=== PATIENT | female | born 1945 | race Caucasian/White ===

== ENCOUNTER 2018-09-03 17:38 | Emergency (ER) | payer OTHER ==
[~2018-09-03] VITALS: Ht 162.6 cm; Wt 69.9 kg
[~2018-09-03 17:38] MED LIST: ATEN-60; DIPH-120; LORA1TAB12; NAPR-223; NOR10T; OMEP20TA44; SIMV20TA90
[2018-09-03 20:31] VITALS: BP 115/34
[2018-09-03] MEDS ORDERED: methylPREDNISolone SOD SUCC 125 MG/2 ML VL IM ONE (21:15)
[2018-09-03] MEDS ORDERED: HYDROcodone-ACET 10/325MG TAB PO ONE (21:15)
== END 2018-09-03 22:00 | disposition home or self-care (01) ==
LOC: ER 17:38
DX: M06.872 Other specified rheumatoid arthritis, left ankle and foot (principal); K21.9 Gastro-esophageal reflux disease without esophagitis; E78.5 Hyperlipidemia, unspecified; I10 Essential (primary) hypertension; F41.9 Anxiety disorder, unspecified; M10.9 Gout, unspecified; Z90.49 Acquired absence of other specified parts of digestive tract
CPT/HCPCS: 73590; 73610; 73630; 96372; 99283; J2930

== ENCOUNTER 2021-02-06 20:42 | Inpatient (IN) | payer OTHER ==
[~2021-02-06] VITALS: Ht 157.5 cm; Wt 75.0 kg
[~2021-02-06 20:42] MED LIST changes: +ALLO100T PO; +ASCO500C49 PO; +ASPI81CH43 PO; +DOCU-94 PO; +FER325T PO; +LEVO250T19 PO; -LORA1TAB12; +LORA1TAB23; +SIMV20TA2; -SIMV20TA90; +TRIATAB3 PO
[2021-02-06] MEDS ORDERED: fentaNYL CITRATE 100 MCG/2 ML VL IV ONE (22:15)
[2021-02-06] MEDS ORDERED: ONDANSETRON HCL 4 MG/2 ML VIAL IV ONE (22:15)
[2021-02-06] MEDS ORDERED: HYDROmorphone HCL 2 MG/ML VL IV ONE (23:45)
[2021-02-07 00:02] LABS: Basophils # (auto) 0.1 10 ^3/uL (0-0.2); Basophils % (auto) 0.7 % (0.0-2.0); Eosinophils # (auto) 0.1 10 ^3/uL (0-0.8); Eosinophils % (auto) 1.1 % (0.0-7.0); Hematocrit 35.4 % (36.0-46.0); Hemoglobin 11.4 g/dL (12.2-16.2); Lymphocytes # (auto) 1.1 10 ^3/uL (0.4-5.4); Lymphocytes % (auto) 12.3 % (10.0-50.0); Mean Corpuscular Hemoglobin 27.1 pg (28.0-32.0); Mean Corpuscular Hgb Conc. 32.3 g/dL (32.0-36.0); Mean Corpuscular Volume 83.8 fL (80.0-100.0); Monocytes # (auto) 0.6 10 ^3/uL (0-1.3); Monocytes % (auto) 6.6 % (0.0-12.0); Neutrophils % (auto) 79.3 % (37.0-80.0); Nucleated Red Blood Cells % 0.1 %; Platelet Count (auto) 184 10^3/uL (140-450); Red Blood Cells 4.23 10^6/uL (4.0-5.20); Red Cell Distribution Width 16.6 % (11.8-14.3); White Blood Cell 8.9 10^3/uL (4.4-10.8)
[2021-02-07 00:24] LABS: INR 1.04 (0.9-1.15); Partial Thromboplastin Time 23.6 sec (23.0-31.2)
[2021-02-07] MEDS ORDERED: cloNIDine HCL 0.1 MG TAB PO PRN (02:15)
[2021-02-07] MEDS ORDERED: ACETAMINOPHEN 325 MG TAB PO PRN (02:15)
[2021-02-07 02:40] LABS: Albumin 3.3 g/dL (3.4-5.0); Calcium 9.1 mg/dL (8.5-10.1); Potassium 4.7 mmol/L (3.5-5.1)
[2021-02-07 02:44] LABS: Bilirubin, Total 0.2 mg/dL (0.2-1.0); Total Protein 7.1 g/dL (6.4-8.2)
[2021-02-07] MEDS: MORPHINE SULFATE 4 MG/ML SYR/VIAL IV PRN ×4 (03:07→16:14)
[2021-02-07] MEDS: ONDANSETRON HCL 4 MG/2 ML VIAL IV PRN (03:07)
[2021-02-07 04:45] VITALS: BP 166/78
[2021-02-07 05:00] VITALS: BP 166/78
[2021-02-07 09:00] VITALS: BP 164/89
[2021-02-07] MEDS ORDERED: FAMOTIDINE 20 MG TAB PO SCH (10:00)
[2021-02-07] MEDS ORDERED: DOCUSATE SOD 100 MG CAP PO PRN (11:15)
[2021-02-07] MEDS ORDERED: ATENOLOL 25 MG TAB PO ONE (12:00)
[2021-02-07 13:00] VITALS: BP_SYST 164; BP_SYST 173; BP_DIAS 89
[2021-02-07] MEDS: TRIAMTERENE/HCTZ 75/50MG TABLET PO SCH (13:49)
[2021-02-07] MEDS: HYDROcodone-ACET 5/325MG TAB PO PRN ×2 (14:46→19:52)
[2021-02-07 14:56] LABS: Urine Bacteria NONE SEEN /hpf (None Seen); Urine Blood Negative /uL (Negative); Urine Specific Gravity 1.016 (1.001-1.035); Urine WBC 2 /hpf (0 - 5)
[2021-02-07 16:41] VITALS: BP 157/91
[2021-02-07] MEDS: FERROUS SULFATE 325mg EC TAB PO SCH (21:21)
[2021-02-07] MEDS: ATORVASTATIN 20 MG TAB PO SCH (21:21)
[2021-02-07 21:52] VITALS: BP 134/70
[2021-02-08] VITALS (11 sets, daily range): BP systolic 108–168; BP diastolic 52–84
[2021-02-08 05:31] LABS: Basophils # (auto) 0 10 ^3/uL (0-0.2); Basophils % (auto) 0.5 % (0.0-2.0); Eosinophils # (auto) 0.1 10 ^3/uL (0-0.8); Hematocrit 31.3 % (36.0-46.0); Hemoglobin 10.4 g/dL (12.2-16.2); Lymphocytes # (auto) 1.2 10 ^3/uL (0.4-5.4); Lymphocytes % (auto) 16.5 % (10.0-50.0); Mean Corpuscular Hemoglobin 27.6 pg (28.0-32.0); Mean Corpuscular Hgb Conc. 33.2 g/dL (32.0-36.0); Mean Corpuscular Volume 83.2 fL (80.0-100.0); Monocytes # (auto) 0.9 10 ^3/uL (0-1.3); Monocytes % (auto) 13.5 % (0.0-12.0); Neutrophils # (auto) 4.7 10 ^3/uL (1.6-8.6); Neutrophils % (auto) 67.5 % (37.0-80.0); Platelet Count (auto) 154 10^3/uL (140-450); Red Blood Cells 3.76 10^6/uL (4.0-5.20); Red Cell Distribution Width 16.7 % (11.8-14.3)
[2021-02-08 05:50] LABS: Calcium 8.8 mg/dL (8.5-10.1); Potassium 5.2 mmol/L (3.5-5.1)
[2021-02-08 05:55] LABS: BUN/Creatinine Ratio 22.1; Bilirubin, Total 0.3 mg/dL (0.2-1.0); Total Protein 6.4 g/dL (6.4-8.2)
[2021-02-08] MEDS: MORPHINE SULFATE 4 MG/ML SYR/VIAL IV PRN (08:08)
[2021-02-08] MEDS: ALLOPURINOL 100 MG TAB PO SCH (09:57)
[2021-02-08] MEDS: ASCORBIC ACID 500 MG TAB PO SCH (09:57)
[2021-02-08] MEDS: PANTOPRAZOLE 40 MG TAB PO SCH (09:57)
[2021-02-08] MEDS: ATENOLOL 25 MG TAB PO SCH (09:58)
[2021-02-08] MEDS: TRIAMTERENE/HCTZ 75/50MG TABLET PO SCH (09:58)
[2021-02-08] MEDS: FERROUS SULFATE 325mg EC TAB PO SCH ×2 (09:58→22:33)
[2021-02-08] MEDS: HYDROcodone-ACET 5/325MG TAB PO PRN (11:45)
[2021-02-08] MEDS ORDERED: BUPIVACAINE 0.5% P/F INJ 10 ML VIAL ONE (14:17)
[2021-02-08] MEDS ORDERED: fentaNYL CITRATE 100 MCG/2 ML VL ONE (14:22)
[2021-02-08] MEDS ORDERED: MORPHINE SULF(PF) 0.5MG/ML 10ML VIAL ONE (14:22)
[2021-02-08] MEDS ORDERED: ePHEDrine SULFATE 50 MG/ML AMP ONE (14:23)
[2021-02-08] MEDS ORDERED: MIDAZOLAM HCL 1MG/1ML-2 ML VIAL ONE ×2 (14:23→15:29)
[2021-02-08] MEDS ORDERED: PROPOFOL 10 MG/ML 20 ML IV ONE (14:23)
[2021-02-08] MEDS ORDERED: ONDANSETRON HCL 4 MG/2 ML VIAL ONE (14:23)
[2021-02-08] MEDS ORDERED: LIDOCAINE 2% (LOCAL ANESTH.) PF 5ml SDV ONE (14:23)
[2021-02-08] MEDS ORDERED: KETAMINE HCL 10 ML ONE (14:23)
[2021-02-08] MEDS ORDERED: GLYCOPYRROLATE 0.2 MG/ML 1ML VIAL ONE (14:23)
[2021-02-08] MEDS ORDERED: ceFAZolin 1GM/50ML 100 ML IV ONE (14:41)
[2021-02-08] MEDS ORDERED: FAMOTIDINE (10MG/ML) 2ML VL IV ONE (14:50)
[2021-02-08] MEDS ORDERED: TRANEXAMIC ACID 20 ML ONE (14:56)
[2021-02-08] MEDS ORDERED: ONDANSETRON HCL 4 MG/2 ML VIAL IV PRN ×2 (17:30)
[2021-02-08] MEDS ORDERED: NALOXONE HCL 0.4 MG/ML VIAL IV PRN (17:30)
[2021-02-08] MEDS ORDERED: DexAMETHasone SOD PHOS 10MG/1ML VIAL INJ IV PRN (17:30)
[2021-02-08] MEDS ORDERED: diphenhdrAMINE HCL 50 MG/1 ML VL IV PRN (17:30)
[2021-02-08] MEDS ORDERED: HYDROmorphone HCL 2 MG/ML VL IV PRN (17:45)
[2021-02-08] MEDS ORDERED: ACETAMINOPHEN 325 MG TAB PO PRN (17:45)
[2021-02-08] MEDS ORDERED: HYDROcodone-ACET 10/325MG TAB PO PRN (17:45)
[2021-02-08 19:33] LABS: Basophils # (auto) 0 10 ^3/uL (0-0.2); Basophils % (auto) 0.3 % (0.0-2.0); Eosinophils # (auto) 0.1 10 ^3/uL (0-0.8); Eosinophils % (auto) 0.6 % (0.0-7.0); Hematocrit 29.1 % (36.0-46.0); Hemoglobin 9.6 g/dL (12.2-16.2); Lymphocytes # (auto) 1.1 10 ^3/uL (0.4-5.4); Lymphocytes % (auto) 10.1 % (10.0-50.0); Mean Corpuscular Hemoglobin 27.8 pg (28.0-32.0); Mean Corpuscular Volume 84.2 fL (80.0-100.0); Monocytes # (auto) 1.2 10 ^3/uL (0-1.3); Monocytes % (auto) 11.2 % (0.0-12.0); Neutrophils # (auto) 8.4 10 ^3/uL (1.6-8.6); Neutrophils % (auto) 77.8 % (37.0-80.0); Platelet Count (auto) 165 10^3/uL (140-450); Red Blood Cells 3.46 10^6/uL (4.0-5.20); Red Cell Distribution Width 16.5 % (11.8-14.3); White Blood Cell 10.7 10^3/uL (4.4-10.8)
[2021-02-08] MEDS: SODIUM CHLOR 0.9% PF (SALINE LOCK) 10ML VIAL/SYR IV SCH (22:00)
[2021-02-08] MEDS: ceFAZolin 1GM 2 GM in D5W 5% 100 ML IV SCH (22:32)
[2021-02-08] MEDS: OXYCODONE W/ ACETAMINOPHEN 5/325MG TABLET PO PRN (22:33)
[2021-02-08] MEDS: ATORVASTATIN 20 MG TAB PO SCH (22:33)
[2021-02-09] VITALS (18 sets, daily range): BP systolic 98–171; BP diastolic 36–79
[2021-02-09] MEDS ORDERED: hydrALAZINE HCL 20 MG/ML VL IV PRN (02:15)
[2021-02-09] MEDS: SODIUM CHLORIDE 0.9% 1,000 ML IV SCH ×2 (03:45→14:01)
[2021-02-09] MEDS: ceFAZolin 1GM 2 GM in D5W 5% 100 ML IV SCH (05:52)
[2021-02-09] MEDS: SODIUM CHLOR 0.9% PF (SALINE LOCK) 10ML VIAL/SYR IV SCH ×2 (05:52→12:40)
[2021-02-09] MEDS: OXYCODONE W/ ACETAMINOPHEN 5/325MG TABLET PO PRN ×3 (05:52→21:21)
[2021-02-09 07:57] LABS: Basophils # (auto) 0 10 ^3/uL (0-0.2); Basophils % (auto) 0.3 % (0.0-2.0); Eosinophils # (auto) 0 10 ^3/uL (0-0.8); Hematocrit 25.2 % (36.0-46.0); Lymphocytes # (auto) 1.1 10 ^3/uL (0.4-5.4)
[2021-02-09 07:59] LABS: Eosinophils % (auto) 0.1 % (0.0-7.0); Hemoglobin 8.3 g/dL (12.2-16.2); Lymphocytes % (auto) 8.7 % (10.0-50.0); Mean Corpuscular Hemoglobin 27.4 pg (28.0-32.0); Mean Corpuscular Hgb Conc. 32.8 g/dL (32.0-36.0); Mean Corpuscular Volume 83.5 fL (80.0-100.0); Monocytes # (auto) 1.7 10 ^3/uL (0-1.3); Monocytes % (auto) 14.4 % (0.0-12.0); Neutrophils # (auto) 9.3 10 ^3/uL (1.6-8.6); Neutrophils % (auto) 76.5 % (37.0-80.0); Platelet Count (auto) 165 10^3/uL (140-450); Red Blood Cells 3.02 10^6/uL (4.0-5.20); Red Cell Distribution Width 16.8 % (11.8-14.3); White Blood Cell 12.1 10^3/uL (4.4-10.8)
[2021-02-09 08:06] LABS: BUN/Creatinine Ratio 23.5; Calcium 8.5 mg/dL (8.5-10.1); Potassium 4.9 mmol/L (3.5-5.1)
[2021-02-09] MEDS: ASCORBIC ACID 500 MG TAB PO SCH (09:45)
[2021-02-09] MEDS: PANTOPRAZOLE 40 MG TAB PO SCH (09:45)
[2021-02-09] MEDS: ATENOLOL 25 MG TAB PO SCH (09:46)
[2021-02-09] MEDS: FERROUS SULFATE 325mg EC TAB PO SCH (09:47)
[2021-02-09] MEDS: ALLOPURINOL 100 MG TAB PO SCH (09:47)
[2021-02-09] MEDS: TRIAMTERENE/HCTZ 75/50MG TABLET PO SCH (09:47)
[2021-02-09] MEDS ORDERED: ENOXAPARIN SOD 40 MG/0.4 ML SYRINGE SC SCH (10:00)
[2021-02-09] MEDS: ONDANSETRON HCL 4 MG/2 ML VIAL IV PRN (14:11)
== END 2021-02-09 21:20 | DRG 481 ==
LOC: ER 20:42 → EDBD 20:42 → OVERFLOW 02-07 02:06 → WEST WING 02-07 04:08 → TELE-WESTW 02-08 16:35
PROVIDERS: ADMIT Nurse Practitioner; ATTEND Internal Medicine
PROC: BQ13ZZZ Fluoroscopy of Right Femur (ICD-10-PCS; 2021-02-08)
PROC: 0QSB04Z Reposition Right Lower Femur with Internal Fixation Device, Open Approach (ICD-10-PCS; principal; 2021-02-08 14:54)
DX: S72.451A Displaced supracondylar fracture without intracondylar extension of lower end of right femur, initial encounter for closed fracture (principal); R71.0 Precipitous drop in hematocrit; W18.39XA Other fall on same level, initial encounter; Y93.01 Activity, walking, marching and hiking; Y92.009 Unspecified place in unspecified non-institutional (private) residence as the place of occurrence of the external cause; Y99.9 Unspecified external cause status; I10 Essential (primary) hypertension; E78.5 Hyperlipidemia, unspecified; K21.9 Gastro-esophageal reflux disease without esophagitis; Z20.822 Contact with and (suspected) exposure to COVID-19; Z88.2 Allergy status to sulfonamides; E66.9 Obesity, unspecified; G57.90 Unspecified mononeuropathy of unspecified lower limb; M10.9 Gout, unspecified; M16.11 Unilateral primary osteoarthritis, right hip; M47.9 Spondylosis, unspecified; M85.80 Other specified disorders of bone density and structure, unspecified site; S91.311A Laceration without foreign body, right foot, initial encounter; Z80.0 Family history of malignant neoplasm of digestive organs; Z83.3 Family history of diabetes mellitus; Z79.82 Long term (current) use of aspirin; Z68.30 Body mass index [BMI] 30.0-30.9, adult
CPT/HCPCS: 36415; 71045; 72192; 73560; 73562; 73630; 73700; 76001; 80048; 80053; 81001; 84132; 85025; 85610; 85730; 86850; 86900; 86901; 87426; 93005; 93306; 96374; 96375; 96376; G0378; J0690; J2001; J2250; J2405; J2704; J3490; J7060